=== PATIENT | female | born 1975 | race Two or more races ===

== ENCOUNTER → 2017-03-26 | Outpatient (REF) | payer BC ==
[2017-03-26 13:11] LABS: BASO % 0.3 % (0.0-1.0); EOS # 0.2 K/mm3 (0.0-0.50); EOS % 1.8 % (0.0-3.0); LARGE UNSTAINED CELL # 0.1 K/mm3 (0.0-0.4); LARGE UNSTAINED CELL % 1.2 % (0.0-4.0); LYMPH # 2.3 K/mm3 (1.5-4.5); LYMPH % 22.8 % (24.0-44.0); MEAN CORPUSCULAR HGB CONC 33.7 g/dl (32.0-36.5); MEAN CORPUSCULAR VOLUME 100.8 fl (80.0-96.0); MONO # 0.4 K/mm3 (0.0-0.8); NEUTROPHILS # 6.7 K/mm3 (1.8-7.7); NEUTROPHILS % 69.9 % (36.0-66.0); PLATELET COUNT, AUTOMATED 272 k/mm3 (150-450); RED CELL DISTRIBUTION WIDTH 12.1 % (11.5-14.5); WHITE BLOOD COUNT 9.6 K/mm3 (4.0-10.0)
[2017-03-26 13:35] LABS: ALBUMIN 3.7 GM/DL (3.2-5.2); ALBUMIN/GLOBULIN RATIO 1.06 (1.00-1.93); ALKALINE PHOSPHATASE 77 U/L (45-117); ALT/SGPT 22 U/L (12-78); ANION GAP 5 MEQ/L (8-16); AST/SGOT 20 U/L (15-37); BILIRUBIN,TOTAL 0.5 MG/DL (0.2-1.0); BLOOD UREA NITROGEN 8 MG/DL (7-18); CARBON DIOXIDE LEVEL 29 MEQ/L (21-32); CHLORIDE LEVEL 107 MEQ/L (98-107); CHOLESTEROL LEVEL 160 MG/DL (<200); CREATININE FOR GFR 0.83 MG/DL (0.55-1.02); GLOMERULAR FILTRATION RATE > 60.0 (>58); GLUCOSE, FASTING 101 MG/DL (70-105); POTASSIUM SERUM 4.4 MEQ/L (3.5-5.1); SODIUM LEVEL 141 MEQ/L (136-145); TOTAL PROTEIN 7.2 GM/DL (6.4-8.2); TRIGLYCERIDES LEVEL 138 MG/DL (<150)
== END ==
LOC: M SFHCPLAZ 08:39
PROVIDERS: ATTEND Nurse Practitioner Family
DX: Z00.00 Encounter for general adult medical examination without abnormal findings (principal); Z13.220 Encounter for screening for lipoid disorders; E55.9 Vitamin D deficiency, unspecified

== ENCOUNTER → 2017-06-11 | Outpatient (REF) | payer BC | LOC: M LAB REF 16:39 | PROVIDERS: ATTEND Physician Assistant | DX: L02.416 Cutaneous abscess of left lower limb (principal) ==

== ENCOUNTER → 2017-12-13 | Outpatient (REF) | payer BC ==
[2017-12-13 18:07] LABS: ALBUMIN 3.9 GM/DL (3.2-5.2); ALBUMIN/GLOBULIN RATIO 1.08 (1.00-1.93); ALKALINE PHOSPHATASE 82 U/L (45-117); ALT/SGPT 22 U/L (12-78); ANION GAP 7 MEQ/L (8-16); AST/SGOT 26 U/L (7-37); BILIRUBIN,TOTAL 0.2 MG/DL (0.2-1.0); BLOOD UREA NITROGEN 7 MG/DL (7-18); CALCIUM LEVEL 8.9 MG/DL (8.5-10.1); CARBON DIOXIDE LEVEL 23 MEQ/L (21-32); CHLORIDE LEVEL 106 MEQ/L (98-107); FREE T4 1.07 NG/DL (0.76-1.46); GLOMERULAR FILTRATION RATE > 60.0 (>58); GLUCOSE, FASTING 89 MG/DL (70-100); MAGNESIUM LEVEL 1.8 MG/DL (1.8-2.4); SODIUM LEVEL 136 MEQ/L (136-145); TOTAL PROTEIN 7.5 GM/DL (6.4-8.2)
[2017-12-13 19:05] LABS: BASO % 0.3 % (0.0-1.0); EOS # 0.1 10^3/uL (0.0-0.50); EOS % 0.8 % (0.0-3.0); HEMATOCRIT 40.8 % (36.0-47.0); HEMOGLOBIN 13.9 g/dl (12.0-15.5); IMMATURE GRANULOCYTE % 0.4 % (0-3.0); LYMPH % 22.4 % (24.0-44.0); MEAN CORPUSCULAR HEMOGLOBIN 32.7 pg (27.0-33.0); MEAN CORPUSCULAR HGB CONC 34.1 g/dl (32.0-36.5); MONO # 0.9 10^3/uL (0.0-0.8); MONO % 6.6 % (0.0-5.0); NEUTROPHILS # 9.3 10^3/uL (1.8-7.7); NEUTROPHILS % 69.5 % (36.0-66.0); PLATELET COUNT, AUTOMATED 279 10^3/uL (150-450); RED BLOOD COUNT 4.25 10^6/uL (4.00-5.40); RED CELL DISTRIBUTION WIDTH 12.1 % (11.5-14.5); WHITE BLOOD COUNT 13.3 10^3/uL (4.0-10.0)
== END ==
LOC: M SFHCPLAZ 14:42
DX: R06.02 Shortness of breath (principal); R19.7 Diarrhea, unspecified; R07.9 Chest pain, unspecified
CPT/HCPCS: 83735

== ENCOUNTER → 2017-12-17 | Outpatient (REF) | payer BC ==
[2017-12-20 00:06] LABS: H PYLORI STOOL ANTIGEN Negative (Negative)
== END ==
LOC: M SFHCPLAZ 12:37
DX: R19.7 Diarrhea, unspecified (principal)
CPT/HCPCS: 87338

== ENCOUNTER → 2017-12-18 | Outpatient (REF) | payer BC | LOC: M SFHCPLAZ 12:39 | DX: R19.7 Diarrhea, unspecified (principal) | CPT/HCPCS: 87507 ==

== ENCOUNTER → 2018-02-12 | Outpatient (CLI) | payer BC | LOC: M RAD 11:43 | DX: R07.9 Chest pain, unspecified (principal) | CPT/HCPCS: 71046 ==

== ENCOUNTER → 2018-08-08 | Outpatient (CLI) | payer BC ==
[2018-08-08 12:23] LABS: ALBUMIN 3.8 GM/DL (3.2-5.2); ALBUMIN/GLOBULIN RATIO 1.09 (1.00-1.93); ALKALINE PHOSPHATASE 77 U/L (45-117); ALT/SGPT 24 U/L (12-78); ANION GAP 8 MEQ/L (8-16); AST/SGOT 23 U/L (7-37); BILIRUBIN,TOTAL 0.5 MG/DL (0.2-1.0); BLOOD UREA NITROGEN 10 MG/DL (7-18); CARBON DIOXIDE LEVEL 28 MEQ/L (21-32); CHLORIDE LEVEL 104 MEQ/L (98-107); CHOLESTEROL LEVEL 188 MG/DL (<200); CHOLESTEROL RISK RATIO 2.611 (<5); CREATININE FOR GFR 0.81 MG/DL (0.55-1.30); GLOMERULAR FILTRATION RATE > 60.0 (>58); GLUCOSE, FASTING 92 MG/DL (70-100); HDL CHOLESTEROL 72 MG/DL (>40); LDL CHOLESTEROL 69 MG/DL (<100); NON-HDL-C 116 MG/DL; POTASSIUM SERUM 4.4 MEQ/L (3.5-5.1); SODIUM LEVEL 140 MEQ/L (136-145); TOTAL PROTEIN 7.3 GM/DL (6.4-8.2); TRIGLYCERIDES LEVEL 235 MG/DL (<150)
== END ==
LOC: M LAB 10:43
DX: Z00.00 Encounter for general adult medical examination without abnormal findings (principal); Z13.220 Encounter for screening for lipoid disorders; E55.9 Vitamin D deficiency, unspecified
CPT/HCPCS: 80053

== ENCOUNTER → 2020-02-16 | Outpatient (REF) | payer BC ==
[2020-02-16 11:28] LABS: BASO # 0.1 10^3/uL (0.0-0.2); BASO % 0.4 % (0.0-1.0); EOS # 0.2 10^3/uL (0.0-0.5); EOS % 1.4 % (0.0-3.0); HEMATOCRIT 40.9 % (36.0-47.0); HEMOGLOBIN 13.7 g/dl (12.0-15.5); LYMPH # 3.2 10^3/uL (1.5-5.0); LYMPH % 26.7 % (24.0-44.0); MEAN CORPUSCULAR HEMOGLOBIN 32.9 pg (27.0-33.0); MEAN CORPUSCULAR HGB CONC 33.5 g/dl (32.0-36.5); MEAN CORPUSCULAR VOLUME 98.1 fl (80.0-96.0); MONO # 0.8 10^3/uL (0.0-0.8); MONO % 6.5 % (0.0-5.0); NEUTROPHILS # 7.7 10^3/uL (1.5-8.5); NEUTROPHILS % 64.7 % (36.0-66.0); PLATELET COUNT, AUTOMATED 336 10^3/uL (150-450); RED BLOOD COUNT 4.17 10^6/uL (4.00-5.40); WHITE BLOOD COUNT 11.9 10^3/uL (4.0-10.0)
[2020-02-16 12:44] LABS: ALT/SGPT 20 U/L (12-78); BILIRUBIN,TOTAL 0.5 MG/DL (0.2-1.0); BLOOD UREA NITROGEN 9 MG/DL (7-18); CALCIUM LEVEL 9.6 MG/DL (8.5-10.1); CARBON DIOXIDE LEVEL 25 MEQ/L (21-32); CHLORIDE LEVEL 104 MEQ/L (98-107); GLOMERULAR FILTRATION RATE > 60.0 (>58); GLUCOSE, FASTING 99 MG/DL (70-100); POTASSIUM SERUM 4.8 MEQ/L (3.5-5.1); SODIUM LEVEL 136 MEQ/L (136-145); TOTAL PROTEIN 7.5 GM/DL (6.4-8.2)
== END ==
LOC: M PLALAB 08:51
PROVIDERS: ATTEND Family Medicine
DX: R19.7 Diarrhea, unspecified (principal)

== ENCOUNTER → 2020-02-18 | Outpatient (REF) | payer BC | LOC: M SFHCPLAZ 10:46 | PROVIDERS: ATTEND Family Medicine | DX: R19.7 Diarrhea, unspecified (principal) ==

== ENCOUNTER → 2020-04-12 | Outpatient (CLI) | payer BC ==
[~2020-04-12] MED LIST: XANA0.5T PO
--- NOTE | 2020-04-28 15:06 | REPMRS ---
Patient History The patient states she had a clinical breast exam in February 2020.Patient is nulliparous. No known family history of cancer. Digital Woman Screen Mammo: April 12, 2020 - Exam #: [id number] Bilateral CC and MLO view(s) were taken. Technologist: Polly Quinn, Technologist Prior study comparison: 2018, bilateral digital mammo screening bilat, performed at [facility]. November 26, 2017, bilateral digital mammo screening bilat, performed at [facility]. October 18, 2016, bilateral digital mammo screening bilat, performed at [facility]. FINDINGS: There are scattered fibroglandular densities. The Volpara volumetric breast density category is: B. There is a moderate amount of residual fibroglandular tissue which is fairly symmetric. There is no interval development of dominant mass, architectural distortion, or grouped microcalcification typical of malignancy. There has been no change in the appearance of the mammogram from the prior studies. 3-D tomosynthesis shows no additional findings. Assessment: BI-RADS/ACR category 1 mammogram. Negative Mammogram. Recommendation Routine screening mammogram of both breasts in 1 year (for women over age 40). This patient's Lifetime Breast Cancer RIsk is estimated at 12.9 %. This mammogram was interpreted with the aid of an FDA-approved computer-aided dectection system. Electronically Signed By: Terell Dunbar MD 04/28/20 [id number]
== END ==
LOC: M WHC 06:21
PROVIDERS: ATTEND Family Medicine
DX: Z12.31 Encounter for screening mammogram for malignant neoplasm of breast (principal)

== ENCOUNTER → 2020-05-02 | Outpatient (CLI) | payer BC ==
[2020-05-04 16:08] LABS: ANTINUCLEAR ANTIBODIES DIRECT Negative (Negative)
== END ==
LOC: M LAB 08:21
PROVIDERS: ATTEND Physician Assistant
DX: R21 Rash and other nonspecific skin eruption (principal)

== ENCOUNTER → 2020-05-29 | Outpatient (CLI) | payer BC | LOC: M LABSMTC 10:15 | PROVIDERS: ATTEND Anesthesiology | DX: Z01.812 Encounter for preprocedural laboratory examination (principal); Z20.828 Contact with and (suspected) exposure to other viral communicable diseases | CPT/HCPCS: C9803; U0003 ==

== ENCOUNTER 2020-06-03 08:43 | Day surgery (SDC) | payer BC ==
[~2020-06-03] VITALS: Ht 162.6 cm; Wt 61.6 kg
[~2020-06-03 08:43] MED LIST changes: +NS 1,000 ML IV ONE
[2020-06-03] MEDS ORDERED: LIDOCAINE 2% 100MG/5ML SDV (FOR ANES.) As Ordered ONE (09:00)
[2020-06-03] MEDS ORDERED: propofoL 200 MG/20 ML VIAL As Ordered ONE (09:00)
[2020-06-03 11:17] VITALS: BP 138/77
--- NOTE | 2020-06-03 11:29 | ROOR ---
Patient Name: Manuela Proctor Procedure Date: 06/03/2020 10:17 AM Date of : 1975 Age: 45 Room: [facility] Gender: Female Note Status: Finalized Procedure: Colonoscopy Indications: Chronic diarrhea Providers: Ed Ramos MD Referring MD: Pattie Jaquez MD Requesting Provider: Medicines: Monitored Anesthesia Care Complications: No immediate complications. Procedure: Pre-Anesthesia Assessment: - Prior to the procedure, a History and Physical was performed, and patient medications and allergies were reviewed. The patient is competent. The risks and benefits of the procedure and the sedation options and risks were discussed with the patient. All questions were answered and informed consent was obtained. Patient identification and proposed procedure were verified by the physician, the nurse and the anesthesiologist in the procedure room. Mental Status Examination: alert and oriented. Airway Examination: normal oropharyngeal airway and neck mobility. Respiratory Examination: clear to auscultation. CV Examination: normal. Prophylactic Antibiotics: The patient does not require prophylactic antibiotics. Prior Anticoagulants: The patient has taken no previous anticoagulant or antiplatelet agents. ASA Grade Assessment: II - A patient with mild systemic disease. After reviewing the risks and benefits, the patient was deemed in satisfactory condition to undergo the procedure. The anesthesia plan was to use monitored anesthesia care (MAC). Immediately prior to administration of medications, the patient was re-assessed for adequacy to receive sedatives. The heart rate, respiratory rate, oxygen saturations, blood pressure, adequacy of pulmonary ventilation, and response to care were monitored throughout the procedure. The physical status of the patient was re-assessed after the procedure. The Colonoscope was introduced through the anus and advanced to the terminal ileum, with identification of the appendiceal orifice and IC valve. The colonoscopy was performed without difficulty. The patient tolerated the procedure well. The quality of the bowel preparation was good. The terminal ileum, ileocecal valve, appendiceal orifice, and rectum were photographed. Scope insertion time was 3 minutes. Scope withdrawal time was 9 minutes. The total duration of the procedure was 12 minutes. Findings: The perianal and digital rectal examinations were normal. The terminal ileum appeared normal. Non-bleeding external and internal hemorrhoids were found during retroflexion. The hemorrhoids were medium-sized. Normal mucosa was found in the entire colon. Biopsies for histology were taken with a cold forceps from the right colon, left colon, transverse colon and rectosigmoid colon for evaluation of microscopic colitis. Verification of patient identification for the specimen was done by the physician and nurse using the patient's name, date and medical record number. Estimated blood loss was minimal. Impression: - The examined portion of the ileum was normal. - Non-bleeding external and internal hemorrhoids. - Normal mucosa in the entire examined colon. Biopsied. Recommendation: - Patient has a contact number available for emergencies. The signs and symptoms of potential delayed complications were discussed with the patient. Return to normal activities tomorrow. Written discharge instructions were provided to the patient. - High fiber diet. - Continue present medications. - Await pathology results. - Telephone GI clinic for pathology results in 2 weeks. - Return to primary care physician. Ed Ramos MD Ed Ramos MD 06/03/2020 11:29:08 AM Electronically signed by Ed Ramos MD Number of Addenda: 0 Note Initiated On: 06/03/2020 10:17 AM Estimated Blood Loss: Estimated blood loss was minimal.
== END 2020-06-03 11:16 | disposition home or self-care (01) ==
LOC: M OPP 08:43
PROVIDERS: ATTEND Internal Medicine Gastroenterology
DX: K52.832 Lymphocytic colitis (principal); K64.8 Other hemorrhoids; F41.9 Anxiety disorder, unspecified; F17.210 Nicotine dependence, cigarettes, uncomplicated; Z79.899 Other long term (current) drug therapy

== ENCOUNTER → 2021-03-10 | Outpatient (REF) | payer BC ==
[~2021-03-10] MED LIST changes: -NS 1,000 ML IV ONE
[2021-03-10 12:47] LABS: FREE THYROXINE INDEX 2.8 % (1.3-4.8); THYROID STIMULATING HORMONE 1.89 uIU/ML (0.358-3.740); THYROXINE (T4) 9.4 UG/DL (4.5-12.0)
== END ==
LOC: M WUC 11:15
DX: Z79.899 Other long term (current) drug therapy (principal)

== ENCOUNTER → 2021-08-02 | Outpatient (CLI) | payer BC | LOC: M LABSMTC 09:22 | PROVIDERS: ATTEND Anesthesiology | DX: Z01.812 Encounter for preprocedural laboratory examination (principal); Z20.822 Contact with and (suspected) exposure to COVID-19 ==

== ENCOUNTER 2021-08-07 09:07 | Day surgery (SDC) | payer BC ==
[~2021-08-07] VITALS: Ht 162.6 cm; Wt 61.6 kg
[~2021-08-07 09:07] MED LIST changes: +LIDOCAINE 2% 100MG/5ML SDV (FOR ANES.) As Ordered ONE; +NS 1,000 ML IV ONE; +propofoL 200 MG/20 ML VIAL As Ordered ONE
--- OUTSIDE RECORDS SUMMARY | 2021-08-07 09:14 | CCD ---
Author Author [facility] Organization [facility] Address Unknown Phone Unavailable Care Team Providers Care Nurse Practitioner Per Diem Name Role Phone Pattie Jaquez Unavailable PROBLEMS Type Condition ICD9-CM Code LIB67-RE Code Onset Dates Condition S tatus W/U Status Risk SNOMED Code Notes Problem Raynaud's disease without gangrene I73.00 Activ e confirmed 059404649 Problem Cigarette nicotine dependence without complication F17.210 Active confirmed 35793813 Problem Anxiety F41.9 Active confirmed 21587945 Problem Psychophysiological insomnia F51.04 Active confirme d 230073161 ALLERGIES Allergen (clinical drug ingredient) Drug/Non Drug Allergy do cumented on EMR Reaction Allergy Type Onset Date Status anti depressants feels more depressed Non Drug Allergy Active ENCOUNTERS from 1975 to 2021-06-05 Encounter Location Date Provider Diagnosis [address] [phone] [place] [address] Jun, Pattie Jaquez Anxiety F41.9 IMMUNIZATIONS Vaccine Route Administration Date Status Pneumococcal Adult 0.5mL Pneumovax 23 IM Intramuscular Apr 23, 018 Administered TDAP Unknown December 20, 2013 Administered SOCIAL HISTORY Tobacco Use: Social History Observation Description Date Details (start date - stop date) Current Smoker Sex Assigned At : Social History Observation Description Sex Assigned At Unknown Education: Question Answer Notes Level of Education: College bachelors business Audit Question Answer Notes Total Score: 3 Interpretation: Alcohol Education Language: Question Answer Notes Languages spoken: Faroese Yazdanism: Question Answer Notes Yazdanism 21 Jew Sexual Hx: Question Answer Notes Had sex in the last 12 months (vaginal, oral, or anal)? Yes LMP: [id number] Have you ever had an STD? No Prevention Strategies discussed: Other with Men only Use protection? No Drug and Alcohol Question Answer Notes Total Score: 0 Interpretation: No problems reported Alcohol Screening: Question Answer Notes Did you have a drink containing alcohol in the past year? Ye s Points 2 Interpretation Negative How often did you have six or more drinks on one occas ion in the past year? Never (0 points) How many drinks did you have on a typica l day when you were drinking in the past year? 1 or 2 (0 points) How often did you have a drink containing alcohol in t he past year? Two to four times a month (2 points) Tobacco Use: Question Answer Notes Are you a: current smoker Smoking Cessation Information Given 02/16/2020 Patient counseled on the dangers of tobacco use and urged to quit: 02/16/2020 How many cigarettes a day do you smoke? 11-20 Are you interested in quitting? Thinking about quitting Counseled the patient on smoking cessation, education provid ed 02/16/2020 REASON FOR REFERRAL No Information VITAL SIGNS No information MEDICATIONS Medication SIG (Take, Route, Frequency, Duration) Notes Start Da te End Date Status Vitamin D (Cholecalciferol) 1000 UNIT 1 capsule Orally Once a da y Mar, Not-Taking Fiber 625 MG 1 tablet as needed Orally Otc Gummies Not-Taking Loratadine Allergy Relief 10 MG 1 tablet on the tongue and allow to dissolve Orally Once a day as needed Not- Taking Nicorette 4 MG 1 piece for 30 minute as needed Mouth/Throat 24 time(s) a day Oct, Active Xanax 0.5 MG 1 tablet Orally Reference #: [id number] twice a day as needed MDD=2 for 30 days Jun, Active PROCEDURES No Information RESULTS No Results REASON FOR VISIT refill MEDICAL (GENERAL) HISTORY Type Description Date Medical History Anxiety, insomnia Medical History Tobacco use, smokes 1 ppd x 20 years Medical History Raynaud's Medical History Low risk stress echo in 04/2018 Surgical History States "kidney tubes were twisted". 7 yr s of age Goals Section No Information Health Concerns No Information MEDICAL EQUIPMENT No Information MENTAL STATUS No Information FUNCTIONAL STATUS No Information ASSESSMENTS Encounter Date Diagnosis Assessment Notes Treatment Notes Treatm ent Clinical Notes Jun, Anxiety (ICD-10 - F41.9) PLAN OF TREATMENT Medication Medication Name Sig Start Date Stop Date Xanax 0.5 MG 1 tablet Orally Reference #: [id number] twice a day as needed MDD=2 for 30 days Jun, Next Appt Details Provider Name:Pattie Jaquez, 2021-11-15 01:00:00 PM, [address] [facility], , [place], [address], Insurance Providers Payer Name Payer Address Payer Phone Insured Name Patient Relati onship to Insured Coverage Start Date Coverage End Date BCBS [place] PPO [id number] [facility] [place] [id number] DANDRE PEPE BCBS [place] PPO [phone] [facility] [place] [address] KIYA GHOSH
--- OUTSIDE RECORDS SUMMARY | 2021-08-07 09:14 | CCD | Continuity of Care Document ---
Author Author Manuela BOOTH [facility] Organization Unknown Address [address] [place] [address], [address] [place] [address] Phone [phone] Care Team Providers Care Striper Machine Name Role Phone Pattie Jaquez M.D. AUTM [phone] Problems Description No Active Problems Social History Type Date Description Comments Sex Unknown ETOH Use 2 A Day Tobacco Use Start: Unknown Patient is a current smoker, smo kes every day 1ppd Allergies and adverse reactions Description No Known Drug Allergies Medications Active Medications SIG Qnty Indications Ordering Provide r Date Clenpiq 10-3.5-12mg-GM -GM/160ML S olution take as directed per doctor's bowel prep instructions. 320ml Z12.1 1 Pravin Morgan MD 06/14/[address] take 4 tabs by mouth prior to procedure per instructions. 4tabs Z12.11 Pravin Morgan MD 06/14/2021 Xanax 0.5mg Tablets 1tab po b id prn Unknown Immunizations Description No Information Available Vital Signs Date Vital Result Comment 06/14/2021 11:25am BP Systolic 126 mmHg BP Diastolic 72 mmHg Height 63 inches 5'3" Weight 136.00 lb BMI (Body Mass Index) 24.1 kg/m2 [place] Body Weight 115 lb Weight 61.690 kg BSA (Body Surface Area) 1.64 m2 08/31/2020 10:23am BP Systolic 118 mmHg BP Diastolic 64 mmHg Height 63 inches 5'3" Weight 143.00 lb BMI (Body Mass Index) 25.3 kg/m2 [place] Body Weight 115 lb Weight 64.865 kg BSA (Body Surface Area) 1.68 m2 Results Description No Information Available Procedures Description No Information Available Medical Devices Description No Information Available Encounters Description No Information Available Assessments Date Code Description Provider 06/14/2021 Z12.11 Encounter for screening for shadi gnant neoplasm of colon Teresa A ROSALINDA Booth 06/14/2021 Z86.010 Personal history of colonic poly ps Teresa Nickie ROSALINDA Booth Plan of Treatment 06/14/2021 - Teresa A ROSALINDA Booth* Z12.11 Encounter for screening for malignant neoplasm of colon * Z86.010 Personal history of colonic polyps * * New Medication:* Clenpiq 10-3.5-12 mg-GM -GM/160ML * Dulcolax 5 mg * New Orders:* Colonoscopy, Ordered: 06/14/21 * Comments:* Will arrange for colonoscopy. Reviewed risks and benefits of the procedure, as well as other options, with the patient. Bowel prep procedure was discussed with patient, as well as risks and side effects associated with the bowel prep. Patient verbalized understanding of all of the above and is in agreement to proceed. Patient will seek medical attention for any acute changes. Will monitor. * Follow up:* As scheduled, sooner if needed. Functional Status Description No Information Available Mental Status Description No Information Available Referrals Description No Information Available
--- OUTSIDE RECORDS SUMMARY | 2021-08-07 09:14 | CCD ---
Continuity of Care Document (CCD) Created on: 06/14/2021 Manuela Proctor External Reference #: [id number] : 1975 Sex: Female Author Author Manuela BOOTH [facility] Organization Unknown Address [address] [place] [address], [address] [place] [address] Phone [phone] Care Team Providers Care Metallurgical Engineering Teacher Name Role Phone Pattie Jaquez M.D. AUTM [phone] Problems Description No Active Problems Social History [...] lb BMI (Body Mass Index) 24.1 kg/m2 [place] Body Weight 115 lb Weight 61.690 kg BSA (Body Surface Area) 1.64 m2 08/31/2020 10:23am BP Systolic 118 mmHg BP Diastolic 64 mmHg Height 63 inches 5'3" Weight 143.00 lb BMI (Body Mass Index) 25.3 kg/m2 [place] Body Weight 115 lb Weight 64.865 kg [...]
--- OUTSIDE RECORDS SUMMARY | 2021-08-07 09:14 | CCD ---
Author Author [facility] Organization [facility] Address Unknown Phone Unavailable Care Team Providers Care Plastic Frame Inserter Name Role Phone Pattie Jaquez Unavailable PROBLEMS Type Condition ICD9-CM Code ALF32-LX Code Onset Dates Condition S tatus W/U Status Risk SNOMED Code Notes Problem Raynaud's disease without gangrene I73.00 Activ e confirmed 018105185 Problem Cigarette nicotine dependence without complication F17.210 Active confirmed 21370041 Problem Anxiety F41.9 Active confirmed 50626638 Problem Psychophysiological insomnia F51.04 Active confirme d 636573968 ALLERGIES Allergen (clinical drug ingredient) Drug/Non Drug Allergy do cumented on EMR Reaction Allergy Type Onset Date Status anti depressants feels more depressed Non Drug Allergy Active ENCOUNTERS from 1975 to 2021-07-14 Encounter Location Date Provider Diagnosis [address] [phone] [place] [address] 10 Jul, 2021 Pattie Jaquez Anxiety F41.9 IMMUNIZATIONS Vaccine Route Administration Date Status Pneumococcal Adult 0.5mL Pneumovax 23 IM Intramuscular Apr 23, 2 018 Administered TDAP Unknown December 20, 2013 Administered SOCIAL HISTORY Tobacco Use: Social History Observation Description Date Details (start date - stop date) Current Smoker Sex Assigned At : Social History Observation Description Sex Assigned At Unknown Education: Question Answer Notes Level of Education: College bachelors business Audit Question Answer Notes Total Score: 3 Interpretation: Alcohol Education Language: Question Answer Notes Languages spoken: Syriac Taoist: Question Answer Notes Taoist 21 Advent Sexual Hx: Question Answer Notes Had sex in the last 12 months (vaginal, oral, or anal)? Yes LMP: [id number] Have you ever had an STD? No [...] Notes Start Da te End Date Status Nicorette 4 MG 1 piece for 30 minute as needed Mouth/Throat 24 time(s) a day Oct, Active Fiber 625 MG 1 tablet as needed Orally Otc Gummies Not-Taking Vitamin D (Cholecalciferol) 1000 UNIT 1 capsule Orally Once a da y Mar, Not-Taking Xanax 0.5 MG 1 tablet Orally Reference #: [id number] twice a day as needed MDD=2 for 30 days Jul, Active Loratadine Allergy Relief 10 MG 1 tablet on the tongue and allow to dissolve Orally Once a day as needed Not- Taking PROCEDURES No Information RESULTS No Results REASON [...] Notes Treatment Notes Treatm ent Clinical Notes Jul, Anxiety (ICD-10 - F41.9) PLAN OF TREATMENT Medication Medication Name Sig Start Date Stop Date Xanax 0.5 MG 1 tablet Orally Reference #: [id number] twice a day as needed MDD=2 for 30 days Jul, Next Appt Details Provider Name:Pattie Jaquez, 2021-11-15 01:00:00 PM, [address] [facility], , [place], [address], Insurance Providers Payer Name Payer Address Payer Phone Insured Name Patient Relati onship to Insured Coverage Start Date Coverage End Date BCBS [place] PPO [phone] [facility] [place] [address] KIYA GHOSH BCBS [place] PPO [phone] [facility] [place] [address] DANDRE PEPE
--- OUTSIDE RECORDS SUMMARY | 2021-08-07 09:14 | CCD ---
Author Author [facility] Organization [facility] Address Unknown Phone Unavailable Care Team Providers Care Director Mission Name Role Phone Kareen Belle MD Unavailable Unavailable Kareen Belle MD Unavailable Unavailable Kareen Belle MD Unavailable Unavailable Kareen Belle MD Unavailable Unavailable Kareen Belle MD Unavailable Unavailable Kareen Belle MD Unavailable Unavailable Re-disclosure Warning The records that you are about to access may contain information from federally-assisted alcohol or drug abuse programs. If such information is present, then the following federally mandated warning applies: This information has been disclosed to you from records protected by federal confidentiality rules (42 CFR part 2). The federal rules prohibit you from making any further disclosure of this information unless further disclosure is expressly permitted by the written consent of the person to whom it pertains or as otherwise permitted by 42 CFR part 2. A general authorization for the release of medical or other information is NOT sufficient for this purpose. The Federal rules restrict any use of the information to criminally investigate or prosecute any alcohol or drug abuse patient.The records that you are about to access may contain highly sensitive health information, the redisclosure of which is protected by Article 27-F of the [place] State Public Health law. If you continue you may have access to information: Regarding HIV / AIDS; Provided by facilities licensed or operated by the [facility] Office of Mental Health; or Provided by the [facility] Office for People With Developmental Disabilities. If such information is present, then the following [facility] mandated warning applies: This information has been disclosed to you from confidential records which are protected by state law. State law prohibits you from making any further disclosure of this information without the specific written consent of the person to whom it pertains, or as otherwise permitted by law. Any unauthorized further disclosure in violation of state law may result in a fine or snf sentence or both. A general authorization for the release of medical or other information is NOT sufficient authorization for further disc losure. Family History Family Member Name Family Member Gender Family Member Status Date o f Status Description Data Source(s) Unknown Unknown Problem MEDENT ([facility]) father Encounters Encounter Providers Location Date Indications Data Source(s ) Unknown [address] [facility] [address] 07/12/2021 12:00:00 AM EST [facility]CW1 ([facility] [place] [address] [facility] [place] [address] 07/12/2021 12:00:00 AM EST eCW1 ([facility]) [place] [address] [facility] [place] [address] 06/05/2021 12:00:00 AM EDT eCW1 ([facility]) Outpatient [address] [facility] [place] [address] 05/18/2021 12:00:00 AM EDT eCW1 ([facility]) Unknown [address] [facility] [place] [address] 05/03/2021 12:00:00 AM EDT eCW1 ([facility]) Unknown [address] [facility] [place] [address] 03/28/2021 12:00:00 AM EDT eCW1 ([facility]) Unknown [address] [facility] [place] [address] 02/27/2021 12:00:00 AM EDT eCW1 ([facility]) [place] [address] [facility] [place] [address] 01/23/2021 12:00:00 AM EDT eCW1 ([facility]) [place] [address] [facility] [place] [address] 12/09/2020 12:00:00 AM EDT eCW1 ([facility]) [place] [address] [facility] [place] [address] 11/17/2020 12:00:00 AM EDT eCW1 ([facility]) [place] [address] [facility] [place] [address] 10/06/2020 12:00:00 AM EST eCW1 ([facility]) Unknown [address] [facility] [place] [address] 08/25/2020 12:00:00 AM EST eCW1 ([facility]) Unknown [address] [facility] [place] [address] 08/19/2020 12:00:00 AM EST eCW1 ([facility]) Unknown [address] [facility] [place] [address] 06/27/2020 12:00:00 AM EDT eCW1 ([facility]) Outpatient Admitter: Kareen Belle MDReferrer: Kareen Belle MD 06/09/2020 12:00:00 AM EDT Microscopic colitis, unspecified [facility] Microscopic colitis, unspecified Immunizations Vaccine Date Status Description Data Source(s) COVID-19 VACCINE [employer] 11/30/2020 12:00:00 AM EDT completed [facility] Vaccine Series Complete: YESThis Data wa s Submitted to [facility] Via [email or web address]. COVID-19 VACCINE [employer] 11/09/2020 12:00:00 AM EST completed [facility] Vaccine Series Complete: NOThis Data was Submitted to [facility] Via [email or web address]. Medications Medication Brand Name Start Date Product Form Dose Route Admi nistrative Instructions Pharmacy Instructions Status Indications Reaction Description Data Source(s) Alprazolam 0.5 MG Oral Tablet [Xanax] Xanax 0.5 MG Xanax 0.5 MG 07/13/2021 12:00:00 AM EST 1.0 {tablet} active Xa nax 0.5 MG [facility] Alprazolam 0.5 MG Oral Tablet [Xanax] Xanax 0.5 MG Xanax 0.5 MG 07/13/2021 12:00:00 AM EST 1.0 {tablet} active Xa nax 0.5 MG [facility]) Bisacodyl 5 MG Delayed Release Oral Tablet [Dulcolax] Dulcol ax 06/14/2021 12:00:00 AM EDT ORAL active M EDENT ([facility], ) Clenpiq Clenpiq 06/14/2021 12:00:00 AM EDT active MEDENT ([facility], ) Alprazolam 0.5 MG Oral Tablet [Xanax] Xanax 0.5 MG Xanax 0.5 MG 06/05/2021 12:00:00 AM EDT 1.0 {tablet} active Xa nax 0.5 MG [facility]CW1 [facility]) Alprazolam 0.5 MG Oral Tablet [Xanax] Xanax 0.5 MG Xanax 0.5 MG 05/03/2021 12:00:00 AM EDT 1.0 {tablet} active Xa nax 0.5 MG [facility]CW1 [facility]) Alprazolam 0.5 MG Oral Tablet [Xanax] Xanax 0.5 MG Xanax 0.5 MG 05/03/2021 12:00:00 AM EDT 1.0 {tablet} active Xa nax 0.5 MG [facility]CW1 [facility]) Alprazolam 0.5 MG Oral Tablet ALPRAZOLAM 08/23/2020 12:00:00 AM EST ta blet 20 TAKE ONE TABLET BY MOUTH TWICE A DAY NEEDED MAXIMUM DAILY DOSE = 2 TABLETS TAKE ONE TABLET BY MOUTH TWICE A DAY NEEDED MAXIMUM DAILY DOSE = 2 TABLETS SOLD: 08/24/2020 [facility] Budesonide 3 MG Delayed Release Oral Capsule Budesonide 07/02/2020 12:00:00 AM EDT ORAL completed MEDENT ([facility], ) Loperamide Hydrochloride 2 MG Oral Capsule Loperamide HCL 07/02/2020 12:00:00 AM EDT completed MEDENT ([facility], ) Bisacodyl 5 MG Delayed Release Oral Tablet [Dulcolax] Dulcol ax 04/05/2020 12:00:00 AM EDT completed MEDENT ([facility], ) POLYETHYLENE GLYCOL 3350 105 MG/ML / Pot assium Chloride 0.18911 MEQ/ML / Sodium Bicarbonate 0.017 MEQ/ML / Sodium Chloride 0.0479 MEQ/ML Oral Solution [GaviLyte-N] Gavilyte-N With Flavor Pack 04/05/2020 12:00:00 AM EDT completed MEDENT ([facility], ) Clenpiq Clenpiq 04/05/2020 12:00:00 AM EDT complet ed MEDENT ([facility], ) Insurance Providers Payer name Policy type / Coverage type Policy ID Covered alliance party ID Covered alliance party's relationship to jewell Policy Jewell Plan Information [facility] [id number] SP [id number] BLUE CARD C [id number] Self [id number] BLUE CARD C [id number] Self [id number] EXCELLUS BCBS B [id number] S [id number] ANSI-Commercial [id number] ANSI-Commercial [id number] ANSI-Commercial [id number] ANSI-Commercial [id number] ANSI-Commercial [id number] ANSI-Commercial [id number] BCBS/Blue Card Commercial [id number] Self [id number] ANSI-Commercial [id number] ANSI-Commercial [id number] ANSI-Commercial [id number] ANSI-Commercial [id number] [place] P[place] 302/307 [id number] SP [id number] [place] 302/307 [id number] SP [id number] ANSI-Commercial [id number] ANSI-Commercial [id number] ANSI-Commercial [id number] ANSI-Commercial [id number] ANSI-Commercial [id number] ANSI-Commercial [id number] ANSI-Commercial [id number] BCBS/Blue Card Commercial [id number] Self [id number] EXCELLUS BCBS B [id number] S [id number] BCBS/Blue Card Commercial [id number] Self [id number] BCBS/Blue Card Commercial [id number] Self [id number] BCBS/Blue Card Commercial [id number] Self [id number] BCBS/Blue Card Commercial [id number] Self [id number] BCBS/Blue Card Commercial [id number] Self [id number] BCBS/Blue Card Commercial [id number] Self BCBS [place] PPO 302/307 [id number] SP [id number] ANSI-Commercial [id number] [place] PPO 302/307 [id number] SP [id number] BCBS [place] PPO 302/307 [id number] SP [id number] Problems, Conditions, and Diagnoses Code Display Name Description Problem Type Effective Dates Data Source(s) K52.839 Microscopic colitis, unspecified Microscopic col itis, unspecified Diagnosis 06/09/2020 11:22:00 AM [facility] K52.9 Noninfective gastroenteritis and colitis , unspecified Noninfective gastroenteritis and colitis, unspecified Diagnosis 06/09/2020 11:22:00 AM [facility] Surgeries/Procedures No Information Results ID Date Data Source [id number] 08/02/2021 09:15:00 AM EST [facility] Name Value Range Interpretation Code Description Data Twyla rce(s) Supporting Document(s) SARS-CoV-2 (COVID-19) RNA [Presence] in Respiratory specimen by LOU with probe detection Not Detected [facility] This lab was ordered by [facility] and reported by [employer] ID Date Data Source [id number] 08/02/2020 12:00:00 AM EST [facility] Name Value Range Interpretation Code Description Data Twyla rce(s) Supporting Document(s) SARS coronavirus 2 Ag [facility] This lab was ordered by [facility] and reported by [facility]. ID Date Data Source [id number] 06/10/2020 06:48:00 PM [facility] Surgical Pathology ReportName: HARDY PROCTORMRN: [id number] Number: [id number] Date: 06/09/2020 00:00Received Date: 06/09/2020 11:24Physician(s): KAREEN BELLE MD HAGHIR, SHAHANDEH F,DOUGLASpecimen(s) ReceivedA: Slides received for consultation, GDLRClinical HistoryChronic diarrhea. For consultation to rule out lymphocytic colitis.DiagnosisCOLON, RANDOM BIOPSIES ([id number], 06/03/20): LYMPHOCYTIC COLITIS. FLATADENOMA. (See Microscopic Description).Electronically Signed By Everton Gurrola M.D., Attending Fbyvxfharah87/9/2020 18:48:03 Gross [facility] [place] [place], are 2 H and Estained slides and 1 paraffin block, labeled [id number], with thecorresponding pathology report. Microscopic DescriptionI completely agree with you that there is a significant increase in thenumber of intraepithelial lymphocytes. The lymphocytosis is patchy andmore prominent in the surface epithelium than in the crypts. There isalso mild expansion of the lamina propria by a mixed inflammatoryinfiltrate composed of plasma cell, lymphocytes and eosinophils.Immunohistochemistry for CD3 highlights the marked lymphocytosis, which isnot as evident on routine histology. There is no increase thickness ofthe collagen table. There is only slight architectural crypt distortion artemio single area where is also mild dysplasia or adenomatous changesconsistent with a flat adenoma. Thank you for letting me see this case inconsultaiton. This report may include one or more immunohistochemical stain results thatuse analyte specific reagents. All positive and negative controls havebeen reviewed by the attending pathologist and are satisfactory. The testswere developed and their performance characteristics determined by [facility] Pathology department. They have not been cleared or approved by the USFood and Drug Administration. The FDA has determined that such clearanceor approval is not necessary. Name Value Range Interpretation Code Description Data Twyla rce(s) Supporting Document(s) Procedure Social History Code Duration Value Status Description Data Source(s ) Smoking 05/18/2021 12:00:00 AM EDT Current Smoker completed Curre nt Smoker [facility] Smoking 05/18/2021 12:00:00 AM EDT Current Smoker completed Curre nt Smoker eCW1 ([facility]) Smoking 05/18/2021 12:00:00 AM EDT Current Smoker completed Curre nt Smoker eCW1 ([facility]) Smoking 05/18/2021 12:00:00 AM EDT Current Smoker completed Curre nt Smoker eCW1 ([facility]) Smoking 11/17/2020 12:00:00 AM EDT Current Smoker completed Curre nt Smoker eCW1 ([facility]) Smoking 11/17/2020 12:00:00 AM EDT Current Smoker completed Curre nt Smoker eCW1 ([facility]) Smoking 11/17/2020 12:00:00 AM EDT Current Smoker completed Curre nt Smoker eCW1 ([facility]) Smoking 11/17/2020 12:00:00 AM EDT Current Smoker completed Curre nt Smoker eCW1 ([facility]) Smoking 11/17/2020 12:00:00 AM EDT Current Smoker completed Curre nt Smoker eCW1 ([facility]) Smoking 11/17/2020 12:00:00 AM EDT Current Smoker completed Curre nt Smoker eCW1 ([facility]) Vital Signs ID Date Data Source UNK Name Value Range Interpretation Code Description Data Source(s) Body weight 61.690 kg 61.690 kg [facility] (Health system) Body surface area Derived from formula 1.64 m2 1.64 m2 [facility] ([facility]) Systolic blood pressure 126 mm[Hg] 126 mm[Hg] M EDENT ([facility]) Diastolic blood pressure 72 mm[Hg] 72 mm[Hg] [facility] ([facility]) Body height 63 [in_i] 63 [in_i] [facility] (Health system) 5'3" Body weight 136.00 [lb_av] 136.00 [lb_av] MEDEN ([facility]) Body mass index (BMI) [Ratio] 24.1 kg/m2 24.1 k g/m2 [facility] ([facility]) [place] body weight 115 [lb_av] 115 [lb_av] MEDEN T ([facility]) Systolic blood pressure 110 mm[Hg] 110 mm[Hg] e CW1 [facility] Body weight 135 [lb_av] 135 [lb_av] eCW1 ([facility]) Body height 64 [in_i] 64 [in_i] eCW1 ([facility]) Body mass index (BMI) [Ratio] 23.17 kg/m2 23.17 kg/m2 eCW1 [facility]) Heart rate 112 /min 112 /min eCW1 (On license of [facility]) Respiratory rate 18 /min 18 /min eCW1 ([facility]) Body temperature 97.7 [degF] 97.7 [degF] eCW[facility] Diastolic blood pressure 78 mm[Hg] 78 mm[Hg] eCW1 ([facility]) Body weight 138 [lb_av] 138 [lb_av] eCW1 ([facility]) Body height 64 [in_i] 64 [in_i] eCW1 ([facility]) Body mass index (BMI) [Ratio] 23.69 kg/m2 23.69 kg/m2 eCW1 [facility]) Heart rate 107 /min 107 /min eCW1 (On license of [facility]) Respiratory rate 18 /min 18 /min eCW1 ([facility]) Body temperature 97.8 [degF] 97.8 [degF] eCW1 ( [facility] Systolic blood pressure 118 mm[Hg] 118 mm[Hg] e CW1 ([facility]) Diastolic blood pressure 82 mm[Hg] 82 mm[Hg] eCW1 [facility]) Body height 63 [in_i] 63 [in_i] MEDRADHA ([facility], ) 5'3" Body weight 143.00 [lb_av] 143.00 [lb_av] MEDEN T ([facility], ) Body mass index (BMI) [Ratio] 25.3 kg/m2 25.3 k g/m2 MEDENT ([facility], ) [place] body weight 115 [lb_av] 115 [lb_av] [facility] Body weight 64.865 kg 64.865 kg [facility] (Health system) Body surface area Derived from formula 1.68 m2 1.68 m2 [facility] ([facility]) Body height 63 [in_i] 63 [in_i] [facility] (Health system) 5'3" Systolic blood pressure 118 mm[Hg] 118 [facility] Diastolic blood pressure 64 mm[Hg] 64 mm[Hg] [facility] ([facility]) Body weight 143.00 [lb_av] 143.00 [lb_av] MEDEN T ([facility]) Body mass index (BMI) [Ratio] 25.3 kg/m2 25.3 k g/m2 [facility] ([facility]) [place] body weight 115 [lb_av] 115 [lb_av] [facility] Body weight 64.865 kg 64.865 kg [facility] (Health system) Body surface area Derived from formula 1.68 m2 1.68 m2 [facility] ([facility]) Patient Treatment Plan of Care Planned Activity Planned Date Details Description Data Source (s) Alprazolam 0.5 MG Oral Tablet [Xanax] 07/13/2021 12:00:00 AM EST [facility] Alprazolam 0.5 MG Oral Tablet [Xanax] 07/13/2021 12:00:00 AM EST eCW1 [facility]) Alprazolam 0.5 MG Oral Tablet [Xanax] 06/05/2021 12:00:00 AM EDT eCW1 ([facility]) Alprazolam 0.5 MG Oral Tablet [Xanax] 05/03/2021 12:00:00 AM EDT eCW1 [facility]) Alprazolam 0.5 MG Oral Tablet [Xanax] 05/03/2021 12:00:00 AM EDT eCW1 [facility])
--- OUTSIDE RECORDS SUMMARY | 2021-08-07 09:14 | CCD ---
Author Author [facility] Organization [facility] Address Unknown Phone Unavailable Care Team Providers Care Scientific Associate Name Role Phone Pattie Jaquez Unavailable PROBLEMS Type Condition ICD9-CM Code AMF34-LD Code Onset Dates Condition S tatus W/U Status Risk SNOMED Code Notes Problem Raynaud's disease without gangrene I73.00 Activ e confirmed [id number] Problem Cigarette nicotine dependence without complication F17.210 Active confirmed 71491630 Problem Anxiety F41.9 Active confirmed 43926855 Problem Psychophysiological insomnia F51.04 Active confirme d 342430935 ALLERGIES Allergen (clinical drug ingredient) Drug/Non Drug Allergy do cumented on EMR Reaction Allergy Type Onset Date Status anti depressants feels more depressed Non Drug Allergy Active ENCOUNTERS from 1975 to 2021-05-19 Encounter Location Date Provider Diagnosis [address] [phone] [place] [address] 16 May, 2021 Pattie Jaquez Anxiety F41.9 ; Psychophysio logical insomnia F51.04 ; Breast cancer screening by mammogram Z12.31 and Cigarette nicotine dependence without complication F17.210 IMMUNIZATIONS Vaccine Route Administration Date Status Pneumococcal [...] Education Language: Question Answer Notes Languages spoken: Mohawk Rastafari: Question Answer Notes Rastafari 21 Evangelical Sexual Hx: Question Answer Notes Had sex in the last 12 months (vaginal, oral, or anal)? Yes LMP: [id number] Have you ever had an STD? No [...] REASON FOR REFERRAL No Information VITAL SIGNS Weight 135 lbs May, Height 64 in May, BMI 23.17 kg/m2 May, Heart Rate 112 /min May, Respiratory Rate 18 /min May, Temperature 97.7 degrees Fahrenheit May, Oximetry 100 May, Blood pressure systolic 110 mm Hg May, Blood pressure diastolic 78 mm Hg May, MEDICATIONS Medication SIG (Take, Route, Frequency, Duration) Notes Start Da te End Date Status Xanax 0.5 MG 1 tablet [id number] twice a day as needed MDD=2 May, Active Fiber 625 MG 1 tablet as needed Orally Otc Gummies Not-Taking Vitamin D (Cholecalciferol) 1000 UNIT 1 capsule Orally Once a da y Mar, Not-Taking Nicorette 4 MG 1 piece for 30 minute as needed Mouth/Throat 24 time(s) a day Oct, Active Loratadine Allergy Relief 10 MG 1 tablet on the tongue and allow to dissolve Orally Once a day as needed Not- Taking PROCEDURES No Information RESULTS No Results REASON FOR VISIT F/u anxiety, Reference #: [id number] last fill 05/04/2021 MEDICAL (GENERAL) HISTORY Type Description Date Medical [...] Notes Treatment Notes Treatm ent Clinical Notes May, Anxiety (ICD-10 - F41.9) Continue Xanax once a daily for anxiety. May, Psychophysiological insomnia (ICD-10 - F51.04) Xanax helps her to fall asleep. May, Breast cancer screening by mammogram (ICD-10 - Z 12.31) May, Cigarette nicotine dependenc e without complication (ICD-10 - F17.210) Currently smoking just under a pack a day. I encouraged smoking cessation. I discussed with the patient that tobacco use increases risk of cancer (including but not limited to lung, mouth, esophageal, and bladder cancer), COPD and emphysema, DE and CVA, and premature . We discussed possible ways to decrease smoking, including Chantix, Wellbutrin, and nicotine replacement therapy with patches, gum, or lozenges. She sometimes uses gum. She is thinking about quitting smoking. PLAN OF TREATMENT Medication Medication Name Sig Start Date Stop Date Xanax 0.5 MG 1 tablet [id number] twice a day as needed MDD=2 May, Treatment Notes Assessment Notes Clinical Notes Anxiety Continue Xanax once a daily for anxiety. Psychophysiological insomnia Xanax helps her to fall asleep. Cigarette nicotine dependence without complication Currently smoking just under a pack a day. I encouraged smoking cessation. I discussed with the patient that tobacco use increases risk of cancer (including but not limited to lung, mouth, esophageal, and bladder cancer), COPD and emphysema, DE and CVA, and premature . We discussed possible ways to decrease smoking, including Chantix, Wellbutrin, and nicotine replacement therapy with patches, gum, or lozenges. She sometimes uses gum. She is thinking about quitting smoking. Future Test Test Name Order Date [facility] Jose Screening Bilateral (Ultrasound if Indicated ) (3D Mammo) [id number] Next Appt Details 6 months; 30 min Reason:Annual Provider Name:Pattie Jaquez, 2021-11-15 01:00:00 PM, [address], , [place], [address], Follow Up:6 months; 30 minAnnual Insurance Providers Payer Name Payer Address Payer Phone Insured Name Patient Relati onship to Insured Coverage Start Date Coverage End Date [employer] [place] PPO [id number] [facility] [id number] K[place]OS[place] BC[place] PPO [id number] [facility] [place] [id number] DANDRE PEPE
--- OUTSIDE RECORDS SUMMARY | 2021-08-07 09:14 | CCD | Continuity of Care Document ---
Author Author Manuela BOOTH [facility] Organization Unknown Address [address] [place] [address], [address] [place] [address] Phone [phone] Care Team Providers Care Informatics Application Analyst Name Role Phone Pattie Jaquez M.D. AUTM [phone] Problems Description No Active Problems Social History [...] lb BMI (Body Mass Index) 24.1 kg/m2 [place] Body Weight 115 lb Weight 61.690 kg BSA (Body Surface Area) 1.64 m2 08/31/2020 10:23am BP Systolic 118 mmHg BP Diastolic 64 mmHg Height 63 inches 5'3" Weight 143.00 lb BMI (Body Mass Index) 25.3 kg/m2 [place] Body Weight 115 lb Weight 64.865 kg [...]
--- OUTSIDE RECORDS SUMMARY | 2021-08-07 09:14 | CCD ---
Author Author [facility] Organization [facility] Address Unknown Phone Unavailable Care Team Providers Care Non Destructive Testing Scientist Name Role Phone Pattie Jaquez Unavailable PROBLEMS Type Condition ICD9-CM Code BKX56-LW Code Onset Dates Condition S tatus W/U Status Risk SNOMED Code Notes Problem Raynaud's disease without gangrene I73.00 Activ e confirmed 153657437 Problem Cigarette nicotine dependence without complication F17.210 Active confirmed 79126081 Problem Anxiety F41.9 Active confirmed 64942925 Problem Psychophysiological insomnia F51.04 Active confirme d [id number] ALLERGIES Allergen (clinical drug ingredient) Drug/Non Drug Allergy do cumented on EMR Reaction Allergy Type Onset Date Status anti depressants feels more depressed Non Drug Allergy Active ENCOUNTERS from 1975 to 2021-07-14 Encounter Location Date Provider Diagnosis [address] [phone] [place] [address] Jul, Pattie Jaquez IMMUNIZATIONS Vaccine Route Administration Date Status Pneumococcal [...] Education Language: Question Answer Notes Languages spoken: Azeri Pentecostalism: Question Answer Notes Pentec[employer]alism 21 Mu-Ism Sexual Hx: Question Answer Notes Had sex in the last 12 months (vaginal, oral, or anal)? Yes LMP: [id number] Have you ever had an STD? No [...] 0.5 MG 1 tablet Orally Reference #: [id number] twice a day as needed MDD=2 for 30 days Jul, Active Loratadine Allergy Relief 10 MG 1 tablet on the tongue and allow to dissolve Orally Once a day as needed Not- Taking PROCEDURES No Information RESULTS No Results REASON FOR VISIT New Refill Request MEDICAL (GENERAL) HISTORY Type Description Date Medical [...] No Information FUNCTIONAL STATUS No Information ASSESSMENTS No Information PLAN OF TREATMENT Medication Medication Name Sig Start Date Stop Date Xanax 0.5 MG 1 tablet Orally Reference #: [id number] twice a day as needed MDD=2 for 30 days Jul, Next Appt Details Provider Name:Pattie Jaquez, 2021-11-15 01:00:00 PM, [address] [facility], , [place], [address], Insurance Providers Payer Name Payer Address Payer Phone Insured Name Patient Relati onship to Insured Coverage Start Date Coverage End Date [employer] [place] PPO [phone] [facility] [place] [place] [address] KIYA GHOSH BCBS [place] PPO [phone] [facility] [place] [address] DANDRE PEPE
--- NOTE | 2021-08-07 11:08 | ROOR ---
Patient Name: Manuela Proctor Procedure Date: 08/07/2021 10:44 AM Date of : 1975 Age: 46 Room: [facility] Gender: Female Note Status: Finalized Procedure: Colonoscopy Indications: High risk colon cancer surveillance: Personal history of colonic polyps Providers: Ed Ramos MD Referring MD: Pattie Jaquez MD Requesting Provider: Medicines: Monitored Anesthesia Care Complications: No immediate complications. Procedure: Pre-Anesthesia Assessment: - Prior to the procedure, a History and Physical was performed, and patient medications and allergies were reviewed. The patient is competent. The risks and benefits of the procedure and the sedation options and risks were discussed with the patient. All questions were answered and informed consent was obtained. Patient identification and proposed procedure were verified by the physician, the nurse and the anesthesiologist in the procedure room. Mental Status Examination: alert and oriented. Airway Examination: normal oropharyngeal airway and neck mobility. Respiratory Examination: clear to auscultation. CV Examination: normal. Prophylactic Antibiotics: The patient does not require prophylactic antibiotics. Prior Anticoagulants: The patient has taken no previous anticoagulant or antiplatelet agents. ASA Grade Assessment: II - A patient with mild systemic disease. After reviewing the risks and benefits, the patient was deemed in satisfactory condition to undergo the procedure. The anesthesia plan was to use monitored anesthesia care (MAC). Immediately prior to administration of medications, the patient was re-assessed for adequacy to receive sedatives. The heart rate, respiratory rate, oxygen saturations, blood pressure, adequacy of pulmonary ventilation, and response to care were monitored throughout the procedure. The physical status of the patient was re-assessed after the procedure. The Colonoscope was introduced through the anus and advanced to the terminal ileum, with identification of the appendiceal orifice and IC valve. The colonoscopy was performed without difficulty. The patient tolerated the procedure well. The quality of the bowel preparation was good except the ascending colon was poor. The terminal ileum, ileocecal valve, appendiceal orifice, and rectum were photographed. Scope insertion time was 2 minutes. Scope withdrawal time was 8 minutes. The total duration of the procedure was 12 minutes. Findings: The perianal and digital rectal examinations were normal. The terminal ileum appeared normal. A large amount of semi-liquid semi-solid stool was found from hepatic flexure to cecum, interfering with visualization. Lavage of the area was performed using a large amount of normal saline, resulting in clearance with fair visualization. Non-bleeding external and internal hemorrhoids were found during retroflexion. The hemorrhoids were small. Impression: - The examined portion of the ileum was normal. - Stool from hepatic flexure to cecum. - Non-bleeding external and internal hemorrhoids. - No specimens collected. Recommendation: - Patient has a contact number available for emergencies. The signs and symptoms of potential delayed complications were discussed with the patient. Return to normal activities tomorrow. Written discharge instructions were provided to the patient. - High fiber diet. - Continue present medications. - Repeat colonoscopy in 5-10 years due to personal history of colon polyps in past Colonoscopy. - Telephone GI clinic if symptomatic. - Return to primary care physician. Procedure Code(s): --- Professional --- 69072, Colonoscopy, flexible; diagnostic, including collection of specimen(s) by brushing or washing, when performed (separate procedure) Diagnosis Code(s): --- Professional --- Z86.010, Personal history of colonic polyps K64.8, Other hemorrhoids CPT copyright 2019 [employer]. All rights reserved. The codes documented in this report are preliminary and upon fabrication welder review may be revised to meet current compliance requirements. Ed Ramos MD Ed Ramos MD 08/07/2021 11:08:11 AM Electronically signed by Ed Ramos MD Number of Addenda: 0 Note Initiated On: 08/07/2021 10:44 AM Estimated Blood Loss: Estimated blood loss was minimal.
[2021-08-07 11:25] VITALS: BP 130/82
== END 2021-08-07 11:33 | disposition home or self-care (01) ==
LOC: M OPP 09:07
PROVIDERS: ATTEND Internal Medicine Gastroenterology
DX: Z12.11 Encounter for screening for malignant neoplasm of colon (principal); Z86.010 Personal history of colon polyps; K64.8 Other hemorrhoids; Z79.899 Other long term (current) drug therapy; Z83.79 Family history of other diseases of the digestive system; F17.210 Nicotine dependence, cigarettes, uncomplicated

== ENCOUNTER → 2021-09-25 | Outpatient (CLI) | payer BC ==
[~2021-09-25] MED LIST changes: -LIDOCAINE 2% 100MG/5ML SDV (FOR ANES.) As Ordered ONE; -NS 1,000 ML IV ONE; -propofoL 200 MG/20 ML VIAL As Ordered ONE
== END ==
LOC: M WHC 14:19
PROVIDERS: ATTEND Family Medicine
DX: Z12.31 Encounter for screening mammogram for malignant neoplasm of breast (principal)

== ENCOUNTER → 2021-09-29 | Outpatient (CLI) | payer BC | LOC: M WUC 12:08 | PROVIDERS: ATTEND Physician Assistant | DX: M54.6 Pain in thoracic spine (principal); S22.41XA Multiple fractures of ribs, right side, initial encounter for closed fracture; X58.XXXS Exposure to other specified factors, sequela; Y92.9 Unspecified place or not applicable; Y93.9 Activity, unspecified; Y99.9 Unspecified external cause status ==

== ENCOUNTER → 2022-03-22 | Outpatient (CLI) | payer BC, OTHER | LOC: M PLAIMG 10:43 | PROVIDERS: ATTEND Physician Assistant | DX: M25.511 Pain in right shoulder (principal); M77.9 Enthesopathy, unspecified ==

== ENCOUNTER → 2022-05-10 | Outpatient (CLI) | payer BC, OTHER | LOC: M SOG 08:52 | PROVIDERS: ATTEND Orthopaedic Surgery | DX: M25.511 Pain in right shoulder (principal) ==

== ENCOUNTER → 2022-06-07 | Outpatient (CLI) | payer BC, OTHER ==
[~2022-06-07] MED LIST changes: +ISOVUE-300 61% 50ML VIAL As Ordered ONE; +LIDOCAINE 1% MDV 20ML VIAL As Ordered ONE; +PROHANCE 279.3MG/ML 5ML VIAL As Ordered ONE
== END ==
LOC: M RADPRO 09:03
PROVIDERS: ATTEND Orthopaedic Surgery
DX: S43.431A Superior glenoid labrum lesion of right shoulder, initial encounter (principal); X58.XXXA Exposure to other specified factors, initial encounter; Y92.9 Unspecified place or not applicable
CPT/HCPCS: 23350; 73223; 77002; A9576

== ENCOUNTER → 2022-07-09 | Outpatient (CLI) | payer BC, OTHER ==
[~2022-07-09] MED LIST changes: -ISOVUE-300 61% 50ML VIAL As Ordered ONE; -LIDOCAINE 1% MDV 20ML VIAL As Ordered ONE; -PROHANCE 279.3MG/ML 5ML VIAL As Ordered ONE
== END ==
LOC: M LABSMTC 11:22
PROVIDERS: ATTEND Anesthesiology
DX: Z01.812 Encounter for preprocedural laboratory examination (principal); Z20.822 Contact with and (suspected) exposure to COVID-19

== ENCOUNTER 2022-07-12 13:41 | Day surgery (SDC) | payer BC, OTHER ==
[~2022-07-12] VITALS: Ht 162.6 cm; Wt 60.8 kg
[~2022-07-12 13:41] MED LIST changes: +ceFAZolin SOD 2 GM in IV 1 EA IV ONE
[2022-07-12] MEDS ORDERED: LR 1,000 ML IV SCH ×2 (14:10→19:20)
[2022-07-12] MEDS ORDERED: fentaNYL 100 MCG/2 ML INJECTION As Ordered ONE ×2 (15:55→19:06)
[2022-07-12] MEDS ORDERED: ROCURONIUM BROMIDE 50 MG/5 ML VIAL As Ordered ONE ×2 (15:55→18:41)
[2022-07-12] MEDS ORDERED: LIDOCAINE 2% 100MG/5ML SDV (FOR ANES.) As Ordered ONE (15:55)
[2022-07-12] MEDS ORDERED: propofoL 200 MG/20 ML VIAL As Ordered ONE (15:55)
[2022-07-12] MEDS ORDERED: MIDAZOLAM INJ 2MG/2ML VIAL (J2250 PER 1MG) As Ordered ONE (15:55)
[2022-07-12] MEDS ORDERED: ROPIvacaine 0.5% 30ML INJECTION (J2795 PER 1MG) PN ONE (16:10)
[2022-07-12] MEDS ORDERED: dexameTHASONE 10MG/1ML VIAL PRES.FREE (J1100 PER 1MG) PN ONE (16:10)
[2022-07-12] MEDS ORDERED: LIDOCAINE 1% SDV 5ML VIAL PN ONE (16:10)
[2022-07-12] MEDS ORDERED: TRANEXAMIC ACID 100 MG/ML 10ML VIAL As Ordered ONE (16:16)
[2022-07-12] MEDS ORDERED: EPINEPHrine 1MG/ML INJ 30ML MD-VIAL As Ordered ONE (16:16)
[2022-07-12] MEDS ORDERED: VANCOMYCIN 1000MG/20ML VIAL As Ordered ONE (16:16)
[2022-07-12] MEDS: fentaNYL 100 MCG/2 ML INJECTION IV PRN ×2 (16:29→16:35)
[2022-07-12] MEDS: MIDAZOLAM INJ 2MG/2ML VIAL (J2250 PER 1MG) IV PRN ×2 (16:29→16:35)
[2022-07-12] MEDS ORDERED: dexameTHASONE 4 MG/ML 1ML VIAL (J1100 PER 1MG) As Ordered ONE (17:04)
[2022-07-12] MEDS ORDERED: SUGAMMADEX SODIUM 500 MG/5 ML VIAL (BRIDION) As Ordered ONE (17:42)
[2022-07-12] MEDS ORDERED: ONDANSETRON 4MG 2ML VIAL As Ordered ONE (17:42)
[2022-07-12] MEDS ORDERED: ACETAMINOPHEN 1000MG 100ML IV BAG As Ordered ONE (17:42)
[2022-07-12] MEDS ORDERED: oxyCODONE 5MG TAB PO PRN (19:20)
[2022-07-12] MEDS ORDERED: HYDROMORPHONE HCL 0.5 MG/ 0.5 ML SYRINGE (J1170 PER 1) IV PRN (19:20)
[2022-07-12] MEDS ORDERED: ONDANSETRON 4MG 2ML VIAL IV PRN (19:20)
[2022-07-12] MEDS ORDERED: fentaNYL 100 MCG/2 ML INJECTION IV PRN (19:20)
[2022-07-12 20:15] VITALS: BP 136/83
== END 2022-07-12 20:30 | disposition home or self-care (01) ==
LOC: M SDC 13:41
PROVIDERS: ATTEND Student in an Organized Health Care Education/Training Program
DX: M75.111 Incomplete rotator cuff tear or rupture of right shoulder, not specified as traumatic (principal); S43.431A Superior glenoid labrum lesion of right shoulder, initial encounter; F17.210 Nicotine dependence, cigarettes, uncomplicated; F41.9 Anxiety disorder, unspecified; Z79.899 Other long term (current) drug therapy
CPT/HCPCS: 29826; 29827; 29828; 64415; 81025; C1713; J0131; J0171; J0690; J1100; J2250; J2405; J3010

== ENCOUNTER → 2022-11-30 | Outpatient (CLI) | payer BC, OTHER ==
[~2022-11-30] MED LIST changes: -ceFAZolin SOD 2 GM in IV 1 EA IV ONE
== END ==
LOC: M WHC 08:06
PROVIDERS: ATTEND Physician Assistant
DX: Z12.31 Encounter for screening mammogram for malignant neoplasm of breast (principal)

== ENCOUNTER → 2023-01-03 | Outpatient (CLI) | payer BC, OTHER | LOC: M WHC 08:15 | PROVIDERS: ATTEND Physician Assistant | DX: R92.8 Other abnormal and inconclusive findings on diagnostic imaging of breast (principal); N60.12 Diffuse cystic mastopathy of left breast | CPT/HCPCS: 76642; 77065; G0279 ==

== ENCOUNTER → 2023-04-16 | Outpatient (CLI) | payer BC, OTHER ==
[2023-04-16 11:06] LABS: BASO % 0.3 % (0.0-1.0); EOS # 0.2 10^3/uL (0.0-0.5); EOS % 1.6 % (0.0-3.0); HEMATOCRIT 40.7 % (36.0-47.0); HEMOGLOBIN 13.5 g/dl (12.0-15.5); LYMPH # 2.6 10^3/uL (1.5-5.0); LYMPH % 21.3 % (24.0-44.0); MEAN CORPUSCULAR HEMOGLOBIN 32.8 pg (27.0-33.0); MEAN CORPUSCULAR HGB CONC 33.2 g/dl (32.0-36.5); MONO # 0.6 10^3/uL (0.0-0.8); MONO % 4.7 % (2.0-8.0); NEUTROPHILS # 8.6 10^3/uL (1.5-8.5); NEUTROPHILS % 71.8 % (36.0-66.0); PLATELET COUNT, AUTOMATED 295 10^3/uL (150-450); RED BLOOD COUNT 4.11 10^6/uL (4.00-5.40)
[2023-04-16 11:28] LABS: ALBUMIN 3.8 G/DL (3.2-5.2); ALKALINE PHOSPHATASE 64 U/L (46-116); ALT/SGPT 15 U/L (7.0-40); AST/SGOT 12 U/L (<34); BILIRUBIN,TOTAL 0.3 MG/DL (0.3-1.2); BLOOD UREA NITROGEN 7 MG/DL (9-23); CALCIUM LEVEL 9.4 MG/DL (8.5-10.1); CARBON DIOXIDE LEVEL 27 MMOL/L (20-31); CHLORIDE LEVEL 104 MMOL/L (98-107); CHOLESTEROL LEVEL 165 MG/DL (<200); CREATININE FOR GFR 0.76 MG/DL (0.55-1.30); GLOMERULAR FILTRATION RATE > 60.0 (>58); GLUCOSE, FASTING 83 MG/DL (60-100); HDL CHOLESTEROL 54.9 MG/DL (>40); LDL CHOLESTEROL 77.5 MG/DL (<100); NON-HDL-C 110.1 MG/DL; POTASSIUM SERUM 4.4 MMOL/L (3.5-5.1); SODIUM LEVEL 137 MMOL/L (136-145); TOTAL PROTEIN 7.1 G/DL (5.7-8.2); TRIGLYCERIDES LEVEL 163 MG/DL (<150)
== END ==
LOC: M WUC 08:17
PROVIDERS: ATTEND Physician Assistant
DX: F41.9 Anxiety disorder, unspecified (principal); F51.04 Psychophysiologic insomnia; Z13.220 Encounter for screening for lipoid disorders; Z01.89 Encounter for other specified special examinations

== ENCOUNTER 2023-06-26 09:38 | Day surgery (SDC) | payer BC, OTHER ==
[~2023-06-26] VITALS: Ht 162.6 cm; Wt 59.9 kg
[~2023-06-26 09:38] MED LIST changes: +LR 1,000 ML IV SCH; +PERC5TAB12 PO; +UNRESOLVED CLARIFICATION ENTRY XX SCH
[2023-06-26] MEDS ORDERED: ceFAZolin SOD 2 GM in IV 1 EA IV ONE (10:10)
[2023-06-26] MEDS ORDERED: fentaNYL 100 MCG/2 ML INJECTION As Ordered ONE ×2 (10:19→12:02)
[2023-06-26] MEDS ORDERED: MIDAZOLAM INJ 2MG/2ML VIAL As Ordered ONE (10:19)
[2023-06-26] MEDS ORDERED: LIDOCAINE 2% 100MG/5ML SDV (FOR ANES.) As Ordered ONE (10:19)
[2023-06-26] MEDS ORDERED: propofoL 200 MG/20 ML VIAL As Ordered ONE (10:20)
[2023-06-26] MEDS ORDERED: ONDANSETRON 4MG 2ML VIAL As Ordered ONE (10:20)
[2023-06-26] MEDS ORDERED: ROCURONIUM BROMIDE 50MG/5ML VIAL As Ordered ONE ×2 (10:20→12:21)
[2023-06-26] MEDS ORDERED: ACETAMINOPHEN 1000MG 100ML IV BAG As Ordered ONE (10:25)
[2023-06-26] MEDS ORDERED: dexmedeTOMIDine (4MCG/ML)200MCG/50ML BTL (PRECEDEX) As Ordered ONE (10:25)
[2023-06-26 11:01] LABS: HEMATOCRIT 41.8 % (36.0-47.0); HEMOGLOBIN 14.5 g/dl (12.0-15.5); MEAN CORPUSCULAR HEMOGLOBIN 33.5 pg (27.0-33.0); MEAN CORPUSCULAR HGB CONC 34.7 g/dl (32.0-36.5); MEAN CORPUSCULAR VOLUME 96.5 fl (80.0-96.0); PLATELET COUNT, AUTOMATED 378 10^3/uL (150-450); RED BLOOD COUNT 4.33 10^6/uL (4.00-5.40); WHITE BLOOD COUNT 11.9 10^3/uL (4.0-10.0)
[2023-06-26 11:20] LABS: BLOOD UREA NITROGEN 5 MG/DL (9-23); CALCIUM LEVEL 9.6 MG/DL (8.5-10.1); CARBON DIOXIDE LEVEL 28 MMOL/L (20-31); CHLORIDE LEVEL 104 MMOL/L (98-107); CREATININE FOR GFR 0.72 MG/DL (0.55-1.30); GLOMERULAR FILTRATION RATE > 60.0 (>58); GLUCOSE, FASTING 97 MG/DL (60-100); POTASSIUM SERUM 4.4 MMOL/L (3.5-5.1); SODIUM LEVEL 137 MMOL/L (136-145)
[2023-06-26 11:37] LABS: HCG, SERUM QUALITATIVE NEGATIVE (NEGATIVE)
[2023-06-26] MEDS ORDERED: FLUORESCEIN 10% (100MG/ML) 5ML VIAL As Ordered ONE (11:58)
[2023-06-26] MEDS ORDERED: KETOROLAC 60MG 2ML VIAL As Ordered ONE (12:02)
[2023-06-26] MEDS ORDERED: SUGAMMADEX SODIUM 500 MG/5 ML VIAL (BRIDION) As Ordered ONE (12:02)
[2023-06-26] MEDS ORDERED: ESMOLOL INJ 100MG/10ML VIAL As Ordered ONE (12:03)
[2023-06-26] MEDS ORDERED: GLYCOPYRROLATE INJ 0.2 MG/ML 2 ML VIAL As Ordered ONE (12:10)
[2023-06-26] MEDS ORDERED: HYDROMORPHONE HCL 0.5 MG/ 0.5 ML SYRINGE IV PRN (12:50)
[2023-06-26] MEDS ORDERED: oxyCODONE 5MG TAB PO PRN (12:50)
[2023-06-26] MEDS ORDERED: ONDANSETRON 4MG 2ML VIAL IV PRN (12:50)
[2023-06-26] MEDS ORDERED: fentaNYL 100 MCG/2 ML INJECTION IV PRN (12:50)
[2023-06-26] MEDS ORDERED: LR 1,000 ML IV SCH (13:45)
[2023-06-26 14:50] VITALS: BP 117/59; TEMP 97.8; O2SAT 94
[2023-06-26] MEDS ORDERED: IBUPROFEN 800 MG TAB PO SCH (18:00)
[2023-06-26] MEDS ORDERED: SIMETHICONE 80MG CHEW TAB PO SCH (18:00)
== END 2023-06-26 14:50 | disposition home or self-care (01) ==
LOC: M SDC 09:38
PROVIDERS: ATTEND Obstetrics & Gynecology
DX: N92.1 Excessive and frequent menstruation with irregular cycle (principal); D25.9 Leiomyoma of uterus, unspecified; F17.218 Nicotine dependence, cigarettes, with other nicotine-induced disorders; F41.9 Anxiety disorder, unspecified; Z79.899 Other long term (current) drug therapy
CPT/HCPCS: 36415; 58571; 80048; 81025; 84703; 85027; 86850; 86900; 86901; 88307; J0131; J0665; J0690; J1100; J1805; J1885; J2250; J2405; J3010; S2900

== ENCOUNTER → 2023-09-06 | Outpatient (CLI) | payer BC, OTHER ==
[~2023-09-06] MED LIST changes: -LR 1,000 ML IV SCH; +PROHANCE 279.3MG/ML 15ML VIAL ONE; -UNRESOLVED CLARIFICATION ENTRY XX SCH
== END ==
LOC: M PLAIMG 08:56
PROVIDERS: ATTEND Physician Assistant
DX: H02.845 Edema of left lower eyelid (principal); H02.842 Edema of right lower eyelid; H02.839 Dermatochalasis of unspecified eye, unspecified eyelid
CPT/HCPCS: 70543; A9576

== ENCOUNTER → 2023-12-02 | Outpatient (CLI) | payer BC ==
[~2023-12-02] MED LIST changes: -PROHANCE 279.3MG/ML 15ML VIAL ONE
== END ==
LOC: M WHC 08:19
PROVIDERS: ATTEND Obstetrics & Gynecology
DX: Z12.31 Encounter for screening mammogram for malignant neoplasm of breast (principal); R92.323 Mammographic fibroglandular density, bilateral breasts

== ENCOUNTER → 2024-04-30 | Outpatient (CLI) | payer BC ==
[2024-04-30 10:24] LABS: BASO % 0.3 % (0.0-1.0); EOS # 0.3 10^3/uL (0.0-0.5); EOS % 2.1 % (0.0-3.0); HEMATOCRIT 39.2 % (36.0-47.0); HEMOGLOBIN 13.2 g/dl (12.0-15.5); LYMPH # 3.3 10^3/uL (1.5-5.0); LYMPH % 28.4 % (24.0-44.0); MEAN CORPUSCULAR HEMOGLOBIN 33.3 pg (27.0-33.0); MEAN CORPUSCULAR HGB CONC 33.7 g/dl (32.0-36.5); MONO # 0.7 10^3/uL (0.0-0.8); MONO % 6.2 % (2.0-8.0); NEUTROPHILS # 7.3 10^3/uL (1.5-8.5); NEUTROPHILS % 62.6 % (36.0-66.0); PLATELET COUNT, AUTOMATED 333 10^3/uL (150-450); RED BLOOD COUNT 3.96 10^6/uL (4.00-5.40); WHITE BLOOD COUNT 11.7 10^3/uL (4.0-10.0)
[2024-04-30 10:51] LABS: ALBUMIN 3.6 G/DL (3.2-5.2); ALKALINE PHOSPHATASE 97 U/L (46-116); ALT/SGPT 18 U/L (7.0-40); AST/SGOT 20 U/L (<34); BILIRUBIN,TOTAL 0.3 MG/DL (0.3-1.2); BLOOD UREA NITROGEN 8 MG/DL (9-23); CALCIUM LEVEL 9.2 MG/DL (8.5-10.1); CARBON DIOXIDE LEVEL 27 MMOL/L (20-31); CHLORIDE LEVEL 110 MMOL/L (98-107); CHOLESTEROL LEVEL 182 MG/DL (<200); CHOLESTEROL RISK RATIO 3.13 (<5); CREATININE FOR GFR 0.74 MG/DL (0.55-1.30); GLOMERULAR FILTRATION RATE > 60.0 (>58); GLUCOSE, FASTING 115 MG/DL (60-100); LDL CHOLESTEROL 78.8 MG/DL (<100); POTASSIUM SERUM 4.2 MMOL/L (3.5-5.1); SODIUM LEVEL 140 MMOL/L (136-145); TOTAL PROTEIN 6.9 G/DL (5.7-8.2); TRIGLYCERIDES LEVEL 226 MG/DL (<150)
[2024-04-30 10:53] LABS: FREE T4 1.12 NG/DL (0.89-1.76)
[2024-04-30 10:55] LABS: TOTAL 25(OH) VITAMIN D 39.2 NG/ML (20.0-100.0)
== END ==
LOC: M WUC 08:04
PROVIDERS: ATTEND Physician Assistant
DX: Z01.818 Encounter for other preprocedural examination (principal); F17.210 Nicotine dependence, cigarettes, uncomplicated; I73.00 Raynaud's syndrome without gangrene; Z13.29 Encounter for screening for other suspected endocrine disorder; Z87.81 Personal history of (healed) traumatic fracture

== ENCOUNTER 2024-05-21 06:40 | Day surgery (SDC) | payer BC ==
[~2024-05-21] VITALS: Ht 162.6 cm; Wt 63.3 kg
[2024-05-21] MEDS ORDERED: LR 1,000 ML IV SCH ×2 (07:10→12:15)
[2024-05-21] MEDS ORDERED: ONDANSETRON 4MG 2ML VIAL As Ordered ONE (08:41)
[2024-05-21] MEDS ORDERED: propofoL 200 MG/20 ML VIAL As Ordered ONE (08:41)
[2024-05-21] MEDS ORDERED: fentaNYL 100 MCG/2 ML INJECTION As Ordered ONE (08:41)
[2024-05-21] MEDS ORDERED: LIDOCAINE 2% 100MG/5ML SDV (FOR ANES.) As Ordered ONE (08:41)
[2024-05-21] MEDS ORDERED: MIDAZOLAM INJ 2MG/2ML VIAL As Ordered ONE (08:41)
[2024-05-21] MEDS ORDERED: dexmedeTOMIDine (4MCG/ML)200MCG/50ML BTL (PRECEDEX) As Ordered ONE (09:21)
[2024-05-21] MEDS: ceFAZolin SOD 2 GM in IV 1 EA IV ONE (10:00)
[2024-05-21] MEDS: POVIDONE-IODINE 5% OPHTH PREP SOL 30ML As Ordered ONE (10:00)
[2024-05-21] MEDS ORDERED: ACETAMINOPHEN 1000MG 100ML IV BAG As Ordered ONE (10:04)
[2024-05-21] MEDS: LIDOCAINE 2% W/EPINEPHRINE 20ML VIAL **PRES FREE As Ordered ONE (10:14)
[2024-05-21] MEDS: POLYSPORIN OPHTH OINT 3.5 GM As Ordered ONE (10:20)
[2024-05-21] MEDS ORDERED: LACRILUBE (AKWA TEARS) OPHTH OINT 3.5GM As Ordered ONE (10:43)
[2024-05-21] MEDS ORDERED: ePHEDrine SULFATE 25 MG/5 ML(5MG/ML) SYRINGE As Ordered ONE (11:26)
[2024-05-21] MEDS: TETRACAINE 0.5% OPHTH SOLN 4ML As Ordered ONE (11:40)
[2024-05-21] MEDS ORDERED: ONDANSETRON 4MG 2ML VIAL IV PRN (12:15)
[2024-05-21] MEDS ORDERED: oxyCODONE 5MG TAB PO PRN (12:15)
[2024-05-21] MEDS ORDERED: fentaNYL 100 MCG/2 ML INJECTION IV PRN (12:15)
[2024-05-21] MEDS ORDERED: HYDROMORPHONE HCL 0.5 MG/ 0.5 ML SYRINGE IV PRN (12:15)
[2024-05-21] MEDS ORDERED: TRAM50TA2 PO (12:31)
[2024-05-21 14:28] VITALS: BP 154/83; TEMP 97.8; O2SAT 96
== END 2024-05-21 14:33 | disposition home or self-care (01) ==
LOC: M SDC 06:40
PROVIDERS: ATTEND Plastic Surgery Surgery of the Hand
DX: H02.834 Dermatochalasis of left upper eyelid (principal); H02.832 Dermatochalasis of right lower eyelid; H02.831 Dermatochalasis of right upper eyelid; H02.835 Dermatochalasis of left lower eyelid; F41.9 Anxiety disorder, unspecified; F51.04 Psychophysiologic insomnia; F17.218 Nicotine dependence, cigarettes, with other nicotine-induced disorders; I73.00 Raynaud's syndrome without gangrene; Z79.899 Other long term (current) drug therapy
CPT/HCPCS: 15821; 15823; 88300; J0131; J0690; J1100; J2250; J2405; J3010

== ENCOUNTER → 2024-12-02 | Outpatient (CLI) | payer BC ==
[~2024-12-02] MED LIST changes: +TRAM50TA2 PO
== END ==
LOC: M WHC 08:09
PROVIDERS: ATTEND Obstetrics & Gynecology
DX: Z12.31 Encounter for screening mammogram for malignant neoplasm of breast (principal)